=== PATIENT | male | born 1965 | race Caucasian/White ===

== ENCOUNTER 2017-12-26 14:50 | Emergency (ER) | payer MEDICAID ==
[~2017-12-26] VITALS: Ht 165.1 cm; Wt 81.6 kg
[2017-12-26 14:52] VITALS: BP_SYST 125
[2017-12-26 15:34] VITALS: BP_SYST 125
== END 2017-12-26 15:35 ==
LOC: SED 14:50
DX: L03.116 Cellulitis of left lower limb (principal); R03.0 Elevated blood-pressure reading, without diagnosis of hypertension
CPT/HCPCS: 99283